=== PATIENT | female | born 1995 | race African-American/Black ===

== ENCOUNTER 2020-10-23 23:37 | Inpatient (IN) ==
[2020-10-24] MEDS ORDERED: ONDANSETRON 4 MG/2 ML VIAL IV PRN (00:08)
[2020-10-24] MEDS ORDERED: MEPERIDINE 50 MG/1 ML VIAL IV PRN (00:08)
[2020-10-24] MEDS ORDERED: BUTORPHANOL 2 MG/ML VIAL IV PRN (00:08)
[2020-10-24 00:32] LABS: Bacteria,Urine Occasional /HPF (Few); Bilirubin,Urine Negative (Negative); Blood, Urine Negative (Negative); Glucose,Urine (UA) Negative (Negative); Ketones,Urine Negative (Negative); Mucus,Urine Moderate /LPF (Occasional); Nitrite,Urine Negative (Negative); Protein,Urine Negative; RBC,Urine 8 /HPF (0-4); Squamous Epithelial Cell,Urine Few /HPF (0-10); Urine Appearance Slightly Hazy (Clear); Urine Color Yellow (Yellow); Urine Specific Gravity 1.027 (1.001-1.035)
[2020-10-24 00:57] LABS: Albumin 3.2 G/DL (3.4-5.0); Bilirubin,Total 0.5 MG/DL (0.20-1.00); Calcium 9.2 MG/DL (8.5-10.1)
[2020-10-24] MEDS ORDERED: AMPICILLIN INJ 2,000 MG in SODIUM CHLORIDE 0.9% 100 ML IV ONE (01:00)
[2020-10-24] MEDS: LACTATED RINGERS 1,000 ML IV SCH ×3 (01:00→12:55)
[2020-10-24 01:20] LABS: Basophils % 0.4 % (0.0-0.8); Eosinophils # 0.1 10*3/uL (0.0-0.87); Eosinophils % 0.7 % (0.00-10.9); Hematocrit 38.3 VOL% (35.7-47.0); Immature Granulocytes % 2.2 %; Immature Granulocytes Absolute 0.15 #; Lymphocytes # 1.9 10*3/uL (1.4-4.0); Lymphocytes % 27.3 % (21.3-54.2); Mean Corpuscular HGB Conc 33.9 GM/DL (32-36); Mean Corpuscular Volume 86.5 FL (87-102); Mean Platelet Volume 12.1 FL (9.6-12.0); Neutrophils % 60.4 % (38.7-73.9); Platelet Count 200 T/CUMM (130-400); Red Blood Count 4.43 MC/CUMM (3.8-5.5); Red Cell Distribution Width 13.4 % (9.3-17.3)
[2020-10-24] MEDS: AMPICILLIN INJ 1,000 MG in SODIUM CHLORIDE 0.9% 100 ML IV SCH ×5 (05:02→21:00)
[2020-10-24] MEDS ORDERED: hydrOXYzine HCL 25 MG/1 ML VIAL IM PRN (06:14)
[2020-10-24] MEDS ORDERED: NALOXONE 0.4 MG/ML VIAL IV PRN (06:14)
[2020-10-24] MEDS ORDERED: ePHEDrine 50 MG/ML VIAL IV PRN (06:14)
[2020-10-24] MEDS ORDERED: PROMETHAZINE 25 MG/1 ML VIAL IM ONE (06:14)
[2020-10-24] MEDS ORDERED: diphenhydrAMINE 50 MG/1 ML VIAL IV PRN ×2 (06:14)
[2020-10-24] MEDS ORDERED: CITRIC ACID/SODIUM CITRATE 30 ML UDCUP PO ONE (06:16)
[2020-10-24] MEDS ORDERED: FAMOTIDINE 20 MG/2 ML VIAL IV ONE (06:17)
[2020-10-24] MEDS: fentaNYL 2 MCG/ROPIV 0.2% EPID 100 ML EPIDURAL SCH ×2 (07:27→18:01)
[2020-10-24 08:32] LABS: Bacteria,Urine Occasional /HPF (Few); Bilirubin,Urine Negative (Negative); Blood, Urine Negative (Negative); Glucose,Urine (UA) Negative (Negative); Ketones,Urine 5 mg/dL (Negative); Mucus,Urine Moderate /LPF (Occasional); Nitrite,Urine Negative (Negative); Protein,Urine Negative; RBC,Urine 1 /HPF (0-4); Squamous Epithelial Cell,Urine Few /HPF (0-10); Urine Appearance CLEAR (Clear); Urine Color Yellow (Yellow); Urine Specific Gravity 1.026 (1.001-1.035); Urine Urobilinogen < 2.0 EU/DL (0.2-1.0)
[2020-10-24] MEDS ORDERED: OXYTOCIN/LR 20 UNIT/1,000 ML BAG IV SCH (13:00)
[2020-10-25] MEDS: AMPICILLIN INJ 1,000 MG in SODIUM CHLORIDE 0.9% 100 ML IV SCH ×2 (01:00→06:40)
[2020-10-25] MEDS ORDERED: TERBUTALINE 1 MG/1 ML VIAL ONE (01:09)
[2020-10-25] MEDS: fentaNYL 2 MCG/ROPIV 0.2% EPID 100 ML EPIDURAL SCH (04:23)
[2020-10-25] MEDS: LACTATED RINGERS 1,000 ML IV SCH ×2 (04:55→09:24)
[2020-10-25] MEDS ORDERED: miSOPROStoL 200 MCG TABLET ONE (05:13)
[2020-10-25] MEDS ORDERED: OXYTOCIN/LR 20 UNIT/1,000 ML BAG IV ONE ×2 (05:13→08:00)
[2020-10-25] MEDS ORDERED: TRANEXAMIC ACID 1,000 MG/10 ML VIAL ONE (05:13)
[2020-10-25] MEDS ORDERED: CARBOPROST TROMETHAMINE 250 MCG/ML AMP IM ONE (05:14)
[2020-10-25] MEDS ORDERED: METHYLERGONOVINE 0.2 MG/1 ML AMP ONE (05:14)
[2020-10-25] MEDS ORDERED: LIDOCAINE 1% 50 ML VIAL ONE (07:22)
[2020-10-25 07:51] LABS: Cord Venous Blood HCO3 20.7 MMOL/L; Cord Venous Blood PCO2 44.1 MMHG; Cord Venous Blood PO2 22.6 MMHG
[2020-10-25] MEDS ORDERED: WITCH HAZEL PADS 100/JAR TOP PRN (08:00)
[2020-10-25] MEDS ORDERED: RHO(D) IMMUNE GLOBULIN 300 MCG SYRINGE IM ONE (08:00)
[2020-10-25] MEDS ORDERED: BENZOCAINE 20%/MENTHOL 0.5% SPRAY 56 GM CAN TOP PRN (08:00)
[2020-10-25] MEDS ORDERED: oxyCODONE/ACETAMINOPHEN 5-325 MG TABLET PO PRN (08:00)
[2020-10-25] MEDS ORDERED: HYDROCORTISONE 2.5% RECTAL CREAM 30 GM TUBE TOP PRN (08:00)
[2020-10-25] MEDS ORDERED: LANOLIN 50% CREAM 0.3 OZ TUBE TOP PRN (08:00)
[2020-10-25] MEDS ORDERED: MEASLES/MUMPS/RUBELLA VACCINE 0.5 ML VIAL SUBCUT ONE (08:00)
[2020-10-25] MEDS ORDERED: ACETAMINOPHEN 325 MG TABLET PO PRN (08:00)
[2020-10-25] MEDS ORDERED: ONDANSETRON 4 MG/2 ML VIAL IV PRN (08:00)
[2020-10-25] MEDS ORDERED: BISACODYL 10 MG SUPP RECTAL PRN (08:00)
[2020-10-25] MEDS ORDERED: DIPH/TET/ACEL PERT BOOSTER VACCINE 0.5 ML VIAL IM ONE (08:00)
[2020-10-25] MEDS: IBUPROFEN 800 MG TABLET PO PRN ×3 (10:10→23:10)
[2020-10-25] MEDS: oxyCODONE/ACETAMINOPHEN 5-325 MG TABLET PO PRN ×2 (11:13→23:10)
[2020-10-25] MEDS: DOCUSATE SODIUM 100 MG CAPSULE PO SCH (20:52)
[2020-10-25] MEDS: levETIRAcetam 250 MG TABLET PO SCH (20:52)
[2020-10-26 06:53] LABS: Basophils % 0.2 % (0.0-0.8); Eosinophils # 0.1 10*3/uL (0.0-0.87); Eosinophils % 0.9 % (0.00-10.9); Hematocrit 30.8 VOL% (35.7-47.0); Immature Granulocytes % 0.9 %; Immature Granulocytes Absolute 0.09 #; Lymphocytes # 2.5 10*3/uL (1.4-4.0); Lymphocytes % 24.9 % (21.3-54.2); Mean Corpuscular HGB Conc 32.8 GM/DL (32-36); Mean Corpuscular Volume 87.7 FL (87-102); Monocytes % 6.5 % (1.7-12.7); Neutrophils % 66.6 % (38.7-73.9); Red Cell Distribution Width 13.4 % (9.3-17.3)
[2020-10-26 06:57] LABS: Hemoglobin 10.1 GM/DL (12.0-16.0); Platelet Count 135 T/CUMM (130-400); Red Blood Count 3.51 MC/CUMM (3.8-5.5)
[2020-10-26] MEDS: DOCUSATE SODIUM 100 MG CAPSULE PO SCH ×3 (07:38→20:56)
[2020-10-26] MEDS: levETIRAcetam 250 MG TABLET PO SCH ×2 (10:09→20:56)
[2020-10-26] MEDS: IBUPROFEN 800 MG TABLET PO PRN ×2 (10:15→17:28)
[2020-10-26] MEDS: oxyCODONE/ACETAMINOPHEN 5-325 MG TABLET PO PRN (17:29)
[2020-10-27 00:37] LABS: Basophils % 0.6 % (0.0-0.8); Eosinophils # 0.1 10*3/uL (0.0-0.87); Eosinophils % 1.5 % (0.00-10.9); Hematocrit 31.4 VOL% (35.7-47.0); Hemoglobin 10.1 GM/DL (12.0-16.0); Immature Granulocytes Absolute 0.14 #; Lymphocytes % 28.8 % (21.3-54.2); Mean Corpuscular HGB Conc 32.2 GM/DL (32-36); Mean Corpuscular Volume 88.5 FL (87-102); Mean Platelet Volume 11.7 FL (9.6-12.0); Monocytes % 5.5 % (1.7-12.7); Neutrophils % 61.6 % (38.7-73.9); Platelet Count 154 T/CUMM (130-400); Red Blood Count 3.55 MC/CUMM (3.8-5.5); Red Cell Distribution Width 13.2 % (9.3-17.3); White Blood Count 6.9 T/CUMM (4-12)
[2020-10-27] MEDS: IBUPROFEN 800 MG TABLET PO PRN (07:20)
[2020-10-27] MEDS: oxyCODONE/ACETAMINOPHEN 5-325 MG TABLET PO PRN (07:21)
[2020-10-27 07:23] VITALS: BP 124/65
[2020-10-27] MEDS: DOCUSATE SODIUM 100 MG CAPSULE PO SCH (09:49)
[2020-10-27] MEDS: levETIRAcetam 250 MG TABLET PO SCH (09:50)
== END 2020-10-27 12:25 | disposition home or self-care (01) | DRG 560 ==
LOC: N.LDOUT 23:37 → N.LD 23:38 → N.OB 10-25 10:36
PROVIDERS: ADMIT Obstetrics & Gynecology; ATTEND Obstetrics & Gynecology